=== PATIENT | female | born 1980 | race Caucasian/White ===

== ENCOUNTER 2021-12-06 14:10 | Outpatient (CLI) | payer BC | END 2021-12-06 14:11 | disposition home or self-care (01) | LOC: BICCT 14:10 | PROVIDERS: ATTEND Otolaryngology Otolaryngic Allergy | DX: H72.92 Unspecified perforation of tympanic membrane, left ear (principal); H72.91 Unspecified perforation of tympanic membrane, right ear; H90.0 Conductive hearing loss, bilateral | CPT/HCPCS: 70480 ==